=== PATIENT | female | born 1955 | race Caucasian/White ===

== ENCOUNTER 2021-07-12 10:48 | Inpatient (IN) ==
[2021-07-12] MEDS ORDERED: PANTOPRAZOLE 40 MG VIAL IV STA (11:39)
[2021-07-12] MEDS ORDERED: SODIUM CHLORIDE 0.9% 1,000 ML IV STA (11:39)
[2021-07-12 11:56] LABS: Basophils # 0.1 10*3/uL (0.0-0.2); Basophils % 0.7 % (0.0-0.8); Eosinophils # 0.2 10*3/uL (0.0-0.87); Eosinophils % 2.6 % (0.00-10.9); Hematocrit 37.1 VOL% (35.7-47.0); Hemoglobin 12.1 GM/DL (12.0-16.0); Immature Granulocytes % 0.4 %; Immature Granulocytes Absolute 0.03 #; Lymphocytes # 1.2 10*3/uL (1.4-4.0); Lymphocytes % 15.2 % (21.3-54.2); Mean Corpuscular HGB Conc 32.6 GM/DL (32-36); Mean Platelet Volume 9.3 FL (9.6-12.0); Monocytes # 0.5 10*3/uL (0.11-0.8); Monocytes % 6.1 % (1.7-12.7); Platelet Count 268 T/CUMM (130-400); Red Blood Count 3.99 MC/CUMM (3.8-5.5); Red Cell Distribution Width 13.3 % (9.3-17.3)
[2021-07-12 12:06] LABS: PT Patient Result 11.1 SECS (10.5-12.0)
[2021-07-12 12:46] LABS: Albumin 3.4 G/DL (3.4-5.0); Bilirubin,Total 0.4 MG/DL (0.20-1.00); Calcium 9.2 MG/DL (8.5-10.1); Osmolality,Calculated 278.5 MOS/KG (273-304); Potassium 3.9 MMOL/L (3.5-5.1); Total Protein 7.2 G/DL (6.4-8.2)
[2021-07-12] MEDS ORDERED: ONDANSETRON 4 MG/2 ML VIAL IV PRN (13:30)
[2021-07-12] MEDS ORDERED: hydrALAZINE 20 MG/1 ML VIAL IV PRN (13:30)
[2021-07-12] MEDS ORDERED: GLUCAGON 1 MG VIAL IM PRN (13:30)
[2021-07-12] MEDS ORDERED: DEXTROSE 10% 250 ML BAG IV PRN (13:35)
[2021-07-12] MEDS: SODIUM CHLORIDE 0.9% 1,000 ML IV SCH (18:10)
[2021-07-12] MEDS ORDERED: SODIUM CHLORIDE 0.9% 1,000 ML IV PRN ×2 (20:32→21:17)
[2021-07-12 20:47] LABS: Basophils % 0.5 % (0.0-0.8); Eosinophils # 0.2 10*3/uL (0.0-0.87); Eosinophils % 2.5 % (0.00-10.9); Hematocrit 30.3 VOL% (35.7-47.0); Immature Granulocytes % 0.4 %; Immature Granulocytes Absolute 0.03 #; Lymphocytes # 1.4 10*3/uL (1.4-4.0); Lymphocytes % 17.8 % (21.3-54.2); Mean Corpuscular Volume 92.1 FL (87-102); Mean Platelet Volume 9.1 FL (9.6-12.0); Monocytes # 0.6 10*3/uL (0.11-0.8); Monocytes % 7.5 % (1.7-12.7); Neutrophils % 71.3 % (38.7-73.9); Platelet Count 215 T/CUMM (130-400); Red Blood Count 3.29 MC/CUMM (3.8-5.5); Red Cell Distribution Width 13.4 % (9.3-17.3); White Blood Count 7.6 T/CUMM (4-12)
[2021-07-12] MEDS ORDERED: PANTOPRAZOLE 40 MG VIAL IV SCH (21:00)
[2021-07-12 21:13] LABS: RBC,Urine <1 /HPF (0-4); Squamous Epithelial Cell,Urine Occasional /HPF (0-10)
[2021-07-12 21:14] LABS: Bilirubin,Urine Negative (Negative); Blood, Urine Trace mg/dL (Negative); Glucose,Urine (UA) Negative (Negative); Ketones,Urine Negative (Negative); Nitrite,Urine Negative (Negative); Protein,Urine Negative (Negative); Urine Appearance Clear (Clear); Urine Color Yellow (Yellow); Urine Specific Gravity 1.015 (1.001-1.035); Urine Urobilinogen 0.2 eU/dL (<2.0); Urine pH 8.5 (4.5-8.0)
[2021-07-12] MEDS ORDERED: SODIUM CHLORIDE 0.9% 1,000 ML IV ONE (21:18)
[2021-07-12] MEDS ORDERED: MORPHINE 2 MG/1 ML SYRINGE IV PRN (22:19)
[2021-07-12] MEDS: traZODone 50 MG TABLET PO SCH (22:45)
[2021-07-13] MEDS ORDERED: PANTOPRAZOLE INJ 200 MG in SODIUM CHLORIDE 0.9% 250 ML IV SCH
[2021-07-13] MEDS: SODIUM CHLORIDE 0.9% 1,000 ML IV SCH ×4 (00:45→19:54)
[2021-07-13] MEDS: LEVOTHYROXINE 125 MCG TABLET PO SCH ×2 (05:36→06:53)
[2021-07-13 06:05] LABS: Basophils % 0.5 % (0.0-0.8); Eosinophils # 0.1 10*3/uL (0.0-0.87); Eosinophils % 1.1 % (0.00-10.9); Hematocrit 31.1 VOL% (35.7-47.0); Hemoglobin 10.1 GM/DL (12.0-16.0); Immature Granulocytes % 0.5 %; Immature Granulocytes Absolute 0.04 #; Lymphocytes # 1.3 10*3/uL (1.4-4.0); Lymphocytes % 15.1 % (21.3-54.2); Mean Corpuscular HGB Conc 32.5 GM/DL (32-36); Mean Platelet Volume 9.8 FL (9.6-12.0); Monocytes # 0.6 10*3/uL (0.11-0.8); Monocytes % 6.6 % (1.7-12.7); Neutrophils % 76.2 % (38.7-73.9); Platelet Count 195 T/CUMM (130-400); Red Blood Count 3.31 MC/CUMM (3.8-5.5); Red Cell Distribution Width 13.5 % (9.3-17.3); White Blood Count 8.5 T/CUMM (4-12)
[2021-07-13 06:24] LABS: Calcium 7.8 MG/DL (8.5-10.1); Osmolality,Calculated 280.3 MOS/KG (273-304); Potassium 3.7 MMOL/L (3.5-5.1); Risk Ratio 3.18; Thyroid Stimulating Hormone 6.84 uIU/ml (0.358-3.74); VLDL Cholesterol 19.8 MG/DL
[2021-07-13] MEDS: FLUTICASONE 50 MCG NASAL SPRAY 16 GM BOTTLE BOTH NARES SCH (07:15)
[2021-07-13] MEDS: BISACODYL 5 MG TABLET PO SCH ×3 (07:35→22:09)
[2021-07-13] MEDS: DULoxetine 30 MG CAPSULE PO SCH (07:35)
[2021-07-13] MEDS: PANTOPRAZOLE 40 MG TABLET PO SCH (08:20)
[2021-07-13] MEDS ORDERED: CALCIUM GLUCONATE RIDER 2,000 MG/100 ML PREMIX IV ONE (08:24)
[2021-07-13] MEDS ORDERED: METOCLOPRAMIDE 10 MG/10 ML UDCUP PO SCH (18:00)
[2021-07-13] MEDS ORDERED: POLYETHYLENE GLYCOL POWDER 255 GM BOTTLE PO ONE (18:00)
[2021-07-13] MEDS ORDERED: MAGNESIUM CITRATE 300 ML BOTTLE PO ONE (21:00)
[2021-07-13] MEDS: traZODone 50 MG TABLET PO SCH (22:09)
[2021-07-14] MEDS: SODIUM CHLORIDE 0.9% 1,000 ML IV SCH ×2 (01:50→06:37)
[2021-07-14 05:28] LABS: Basophils # 0.1 10*3/uL (0.0-0.2); Basophils % 0.5 % (0.0-0.8); Eosinophils # 0.3 10*3/uL (0.0-0.87); Eosinophils % 2.6 % (0.00-10.9); Hematocrit 37.1 VOL% (35.7-47.0); Hemoglobin 12.1 GM/DL (12.0-16.0); Immature Granulocytes % 0.4 %; Immature Granulocytes Absolute 0.04 #; Lymphocytes # 1.6 10*3/uL (1.4-4.0); Lymphocytes % 16.5 % (21.3-54.2); Mean Corpuscular HGB Conc 32.6 GM/DL (32-36); Mean Platelet Volume 9.4 FL (9.6-12.0); Monocytes # 0.7 10*3/uL (0.11-0.8); Monocytes % 7.3 % (1.7-12.7); Neutrophils % 72.7 % (38.7-73.9); Platelet Count 254 T/CUMM (130-400); Red Blood Count 3.99 MC/CUMM (3.8-5.5); Red Cell Distribution Width 13.7 % (9.3-17.3); White Blood Count 9.8 T/CUMM (4-12)
[2021-07-14 05:54] LABS: Calcium 8.7 MG/DL (8.5-10.1); Osmolality,Calculated 280.1 MOS/KG (273-304); Potassium 3.3 MMOL/L (3.5-5.1)
[2021-07-14] MEDS ORDERED: LACTATED RINGERS 1,000 ML IV SCH (06:30)
[2021-07-14] MEDS ORDERED: POTASSIUM CHLORIDE RIDER 10 MEQ/100 ML PREMIX IV PRN (06:53)
[2021-07-14] MEDS ORDERED: LIDOCAINE 100 MG/5 ML SYRINGE ONE (08:52)
[2021-07-14] MEDS ORDERED: propofoL 200 MG/20 ML VIAL IV ONE ×2 (08:52→09:10)
[2021-07-14 09:59] VITALS: BP 140/66
[2021-07-14] MEDS: DULoxetine 30 MG CAPSULE PO SCH (10:17)
[2021-07-14] MEDS: FLUTICASONE 50 MCG NASAL SPRAY 16 GM BOTTLE BOTH NARES SCH (10:18)
[2021-07-14] MEDS: PANTOPRAZOLE 40 MG TABLET PO SCH (10:18)
[2021-07-14] MEDS: LEVOTHYROXINE 125 MCG TABLET PO SCH (10:18)
== END 2021-07-14 13:57 | disposition home or self-care (01) | DRG 378 ==
LOC: N.ED 10:48 → SUATTDRO 13:18 → N.EDINP 13:18 → N.5E 15:15 → N.ICU 22:28
PROVIDERS: ADMIT Hospitalist; ATTEND Internal Medicine